=== PATIENT | female | born 1990 | race Caucasian/White ===

== ENCOUNTER 2017-03-31 18:21 | Emergency (ER) | payer MEDICARE | END 2017-03-31 21:52 | disposition home or self-care (01) | LOC: ER 18:21 | DX: N12 Tubulo-interstitial nephritis, not specified as acute or chronic (principal); A59.09 Other urogenital trichomoniasis; G43.909 Migraine, unspecified, not intractable, without status migrainosus; F17.210 Nicotine dependence, cigarettes, uncomplicated; Z79.899 Other long term (current) drug therapy | CPT/HCPCS: 36415; 96372; J0696 ==